=== PATIENT | female | born 1955 | race Caucasian/White ===

== ENCOUNTER 2019-12-27 18:06 | Emergency (ER) | payer MEDICARE, MEDICAID ==
[2019-12-27 18:30] VITALS: BP 154/73
[2019-12-27] MEDS ORDERED: TETRACAINE HCL 0.5% OPH SOLN 4 ML OD ONE (19:04)
--- NOTE | 2019-12-27 19:33 | ER Document Report ---
ED Eye Complaint - General Chief Complaint: Foreign Body in Eye Stated Complaint: FOREIGN OBJECT IN RIGHT EYE Time Seen by Provider: 12/27/19 18:56 Information source: Patient Notes: Patient is a 64-year-old female comes emergency room complaining of getting sand in [place]. Patient stated occurred approximately 2 hours ago. Recently 6 weeks ago she had cataract surgery x3. And she is was concerned that this was going to irritate that. She denies any real visual changes she has some mild amount of discomfort and pain. Light seems to be making it worse. - HPI Onset: Just prior to arrival Occurred at: Public place, Other - [place] Quality of pain: Achy Severity: Moderate Pain Level: 2 Exposure: Projectile Safety glasses worn: No Contact lenses worn: No Associated symptoms: Pain, Photophobia, Blurred vision - Related Data Allergies/Adverse Reactions: codeine Allergy (Verified 12/27/19 19:01) Past Medical History - General Information source: Patient - Social History Smoking Status: Never Smoker Chew tobacco use (# tins/day): No Frequency of alcohol use: None Drug Abuse: None Lives with: Family Family History: Reviewed & Not Pertinent Endocrine Medical History: Reports: Hx Diabetes Mellitus Type 2 Review of Systems - Review of Systems Constitutional: No symptoms reported EENT: See HPI, Eye pain Cardiovascular: No symptoms reported Respiratory: No symptoms reported Gastrointestinal: No symptoms reported Genitourinary: No symptoms reported Female Genitourinary: No symptoms reported Musculoskeletal: No symptoms reported Skin: No symptoms reported Hematologic/Lymphatic: No symptoms reported Neurological/Psychological: No symptoms reported -: Yes All other systems reviewed and negative Physical Exam - Vital signs Vitals: Temp Pulse Resp BP Pulse Ox 98.5 F 77 16 154/73 H 93 12/27/19 18:28 12/27/19 18:28 12/27/19 18:28 12/27/19 18:28 12/27/19 18:28 Interpretation: Hypertensive - Notes Notes: PHYSICAL EXAMINATION: GENERAL: Well-appearing, well-nourished and in no acute distress. HEAD: Atraumatic, normocephalic. EYES: Examination patient's eyes show the right 1 to have some mild injection of the conjunctiva. On initial examination and with transient slight do not see a foreign body reflection. Patient has clear cornea on this tangential light currently. ENT: Nares patent, oropharynx clear without exudates. Moist mucous membranes. LUNGS: Breath sounds clear to auscultation bilaterally and equal. No wheezes rales or rhonchi. HEART: Regular rate and rhythm without murmurs NEUROLOGICAL: Cranial nerves grossly intact. Normal speech, normal gait. Normal sensory, motor exams SKIN: Warm, Dry, normal turgor, no rashes or lesions noted. - HEENT Visual acuity- Right eye: 20/50 Visual acuity- Left eye: 20/50 Visual acuity- Both eyes: 20/30 Corrective lenses worn: No Course - Re-evaluation Re-evalutation: 12/27/19 19:32 Further evaluation patient's eye with a fluorescein stain I first applied 2 drops of tetracaine to patient's right eye and then used a fluorescein strip and dab that on the lateral side of her canthus of the right eye. I then shut the lights down and used a Dai lamp. Turning it on I found a small abrasion at about the 7 o'clock position. It had a dye uptake. I did flush and reexamined and is still has slight amount of uptake. I then flipped patient's lids and found no foreign bodies underneath the lids of the upper or lower. Patient's visual acuity showed 20/50 in each eye and 20/30 combined. No other abnormalities were found. - Vital Signs Vital signs: Temp Pulse Resp BP Pulse Ox 98.5 F 77 16 154/73 H 93 12/27/19 18:28 12/27/19 18:28 12/27/19 18:28 12/27/19 18:28 12/27/19 18:28 Discharge - Discharge Clinical Impression: Corneal abrasion Qualifiers: Encounter type: initial encounter Laterality: right Qualified Code(s): S05.01XA - Injury of conjunctiva and corneal abrasion without foreign body, right eye, initial encounter Condition: Stable Disposition: HOME, SELF-CARE Additional Instructions: Home and rest. Stay in a darkened area as much as possible if you have to drive home tomorrow used really dark sunglasses. Use the ointment as prescribed. This ointment actually gives a soothing feeling more than the drops do. Since you are leaving tomorrow morning to go back to [place] follow-up with your relief charge nurse on Sunday. Prescriptions: Erythromycin Base [E-Mycin 0.5% Oph Ointment 3.5 gm] 1 applic OD QID #1 tube
== END 2019-12-27 19:56 | disposition home or self-care (01) ==
LOC: ER 18:06
DX: S05.01XA Injury of conjunctiva and corneal abrasion without foreign body, right eye, initial encounter (principal); X58.XXXA Exposure to other specified factors, initial encounter; Z88.6 Allergy status to analgesic agent; Z88.5 Allergy status to narcotic agent; E11.9 Type 2 diabetes mellitus without complications
CPT/HCPCS: 99283; J3490